=== PATIENT | male | born 1980 | race Caucasian/White ===

== ENCOUNTER 2020-02-13 19:11 | Emergency (ER) | payer OTHER, SELFPAY ==
[2020-02-13 19:28] VITALS: BP 129/71; PULSE 75; RESP 16; TEMP 37.1; O2SAT 98
--- NOTE | 2020-02-13 19:48 | XR_ITS ---
EXAMINATION: XR ABDOMEN KUB CLINICAL INDICATION: Constipation. COMPARISON: None TECHNIQUE: AP views of the abdomen. FINDINGS: Nonobstructive bowel gas pattern. Mild gas throughout the colon. No abnormal soft tissue calcification. IVC filter. Phleboliths within the right pelvis. No acute osseous abnormality. XR/XR KUB IMPRESSION: Nonobstructive bowel gas pattern. Mild gas throughout the colon.
--- NOTE | 2020-02-13 19:49 | ED.ABDPAIN ---
HPI - Abdominal Pain General Chief Complaint: Abdominal Pain Stated Complaint: ABD PAIN Time Seen by Provider: 02/13/20 19:38 Source: patient Mode of arrival: ambulatory History of Present Illness HPI narrative: 39-year-old male with a past medical history of back pain presenting to ED complaining of chronic back pain x months, now with abdominal discomfort/bloating and constipation without BM x 10 days. Reports flatness has decreased. Admits to associated nausea /vomiting. Denies fever, chills, dysuria/hematuria, urinary retention or incontinence Reports back pain is unchanged, has been to multiple ED's with similar complaints, including our ED and had x-rays that were negative MD elicited complaint: abdominal pain Related Data Previous Rx's Medication Instructions Recorded acetaminophen [Tylenol Extra 500 mg PO Q6H PRN #20 tab 02/13/20 Strength] cyclobenzaprine 5 mg PO Q8H PRN 5 Days #14 tab 02/13/20 lidocaine [Lidoderm] 1 patch TOPICAL DAILY PRN #30 ea 02/13/20 MDD remove after 12 hours mineral oil [Fleet Mineral Oil] 118 ml MO DAILY PRN #135 ml 02/13/20 naproxen 500 mg PO BID PRN 10 Days #20 tab 02/13/20 Allergies Allergy/AdvReac Type Severity Reaction Status Date / Time No Known Allergies Allergy Verified 02/13/20 19:32 Review of Systems Review of Systems Constitutional: No Weight loss, No Fever Cardiovascular: No Chest Pain, No SOB, No Dyspnea Respiratory: No Cough, No Dyspnea Gastrointestinal: + Nausea, + Vomiting, No Diarrhea, + Constipation, + Abdominal pain, Genitourinary: No irregular bleeding, No Dysuria, No Hematuria, No Urinary Incontinence /retention Musculoskeletal: + chronic back pain, No Myalgias, No Joint Swelling Skin: No Skin Lesions, No rash Neuro: No Weakness, + chronic intermittent Numbness assoc with back pain, No Paresthesias Yes all other systems are reviewed and are negative Denies Sensory deficit (Neuro) Physical Exam Vital Signs: Vital Signs: Vital Signs Temp Pulse Resp BP Pulse Ox 02/13/20 20:16 97.7 F 70 18 101/72 98 02/13/20 19:28 98.7 F 75 16 129/71 98 Body Mass Index 0.2 Const: General: cooperative and healthy appearing Orientation/consciousness: patient oriented x3 Limitations: no limitations HENMT: Head: Yes normal to inspection Ears: hearing grossly normal bilaterally General nose exam: Normal external nose present Face and sinus: Yes normal facial exam Eyes: General: appearance normal, both eyes and all related structures EOM: EOMs intact bilaterally Neck: Neck: Yes normal visual inspection Resp: Effort & Inspection: normal respiratory effort GI: Inspection: Yes normal to inspection Palpation (GI): Soft to palpation, Tenderness to palpation present (GI) ( diffusely), no guarding and not rigid Back/Spine/Pelvis: Other: no midline spinous tenderness throughout Skin: Rashes: no rashes Wounds: no wounds Neuro: Other: no saddle anesthesia General: patient oriented x3 and no focal motor deficits Gait exam (Neuro): Normal gait present Motor exam (neuro): 5/5 motor strength present throughout Sensory Exam: No Sensory deficit (Neuro) Extrem: General: Yes normal to inspection Course Course Course Narrative: - labs unremarkable, KUB showing nonobstructive bowel gas pattern. Mild gas throughout the colon > patient given GoLYTELY in the ED. Will DC with GoLYTELY. Instructions discussed. MDM - Abdominal Pain MDM Narrative Medical decision making narrative: 39-year-old male with a past medical history of back pain presenting to ED complaining of chronic back pain x months, now with abdominal discomfort/bloating and constipation without BM x 10 days. On exam VSS, NAD/ well-appearing, abdomen soft diffusely tender. No midline spinous tenderness throughout or red flag symptoms. Concern for SBO/constipation. Plan: KUB Lab Data Result diagrams: 02/13/20 20:29 02/13/20 20:29 Labs: Lab Results 02/13/20 02/13/20 Range/Units 20:29 20:29 WBC 5.4 (4.8-10.8) X10*3/uL RBC 5.02 (4.60-5.80) X10*6/uL Hgb 12.2 L (14.0-18.0) g/dl Hct 38.5 L (42-52) % MCV 76.7 L (80-98) fL MCH 24.3 L (27.0-33.0) pg MCHC 31.7 (31.0-36.0) g/dl RDW 13.8 (11.0-16.0) % Plt Count 229 (160-400) X10*3/uL MPV 11.4 (9.4-12.4) fL Immature Gran % (Auto) 0.2 (0.0-0.4) % Neut % (Auto) 64.6 (45-73) % Lymph % (Auto) 26.7 (20-40) % [place] % (Auto) 7.9 (2-11) % Eos % (Auto) 0.4 (0-4) % Baso % (Auto) 0.2 (0-2) % Lymph # (Auto) 1.5 (1.2-4.9) X10*3/uL [place] # (Auto) 0.4 (0.1-1.2) X10*3/uL Eos # (Auto) 0.0 (0.0-0.4) X10*3/uL Baso # (Auto) 0.0 (0.0-0.2) X10*3/uL Abs Immat Gran (auto) 0.01 (0.00-0.03) X10*3/uL Absolute Neuts (auto) 3.5 (2.0-8.3) X10*3/uL Absolute Nucleated RBC 0.000 (0.0-0.012) X10*3/uL Nucleated RBC % (auto) 0.0 (0.0-0.2) /100WBC Sodium 138 (135-145) mmol/L Potassium 4.5 (3.3-5.1) mmol/l Chloride 100 (96-108) mmol/L Carbon Dioxide 29 (22-29) mmol/L Anion Gap 14 (12-20) BUN 10 (9-16) mg/dL Creatinine 0.86 (0.5-1.4) mg/dL Estim Creat Clear Calc 160.6 Estimated GFR > 60 Random Glucose 114 (60-115) mg/dL Calcium 8.6 (8.4-10.2) mg/dL Magnesium 2.4 (1.6-2.6) mg/dL Total Bilirubin 0.4 (0.0-1.0) mg/dL Direct Bilirubin < 0.2 (0.0-0.5) mg/dL AST 19 (5-37) U/L ALT 17 (0-40) U/L Alkaline Phosphatase 58 (39-117) U/L Total Protein 7.4 (6.5-8.0) g/dL Albumin 4.2 (3.5-5.0) g/dL Lipase 13 (8-78) U/L Discharge Plan Discharge Clinical Impression: Constipation, Chronic back pain Patient Disposition: Home, Self-Care Instructions: Constipation (ED) Additional Instructions: Your x-ray showed a lot of stool in her bowel Take GoLYTELY as instructed If you do not have a bowel movement in 2 days return to the ED immediately Additionally you sleepy enema If your pain persists or worsens, he developed persistent nausea/vomiting,numbness/tingling, weakness, or fever, or are not passing gas return to the ED Your pain is likely musculoskeletal Flexeril is a muscle relaxer, take at night as it makes you drowsy, do not drive, drink alcohol, or operate machinery while taking it Naproxen as an anti-inflammatory / pain medication, take with food Lidoderm patches are numbing patches, apply to painful area In addition take Tylenol at home If symptoms persist or worsen, pain becomes unbearable, you developed urinary retention or incontinence, or weakness return to the ED Prescriptions: New mineral oil [Fleet Mineral Oil] Enema 118 ml MO DAILY PRN (Reason: constipation) Qty: 135 RF: 0 acetaminophen [Tylenol Extra Strength] 500 mg tablet 500 mg PO Q6H PRN (Reason: pain or fever) Qty: 20 RF: 0 lidocaine [Lidoderm] 5 % adhesive patch,medicated 1 patch topical DAILY MDD remove after 12 hours PRN (Reason: pain) Qty: 30 RF: 0 naproxen 500 mg tablet 500 mg PO BID PRN (Reason: pain) 10 Days Qty: 20 RF: 0 cyclobenzaprine 5 mg tablet 5 mg PO Q8H PRN (Reason: pain (scale score 7-10)) 5 Days Qty: 14 RF: 0 Referrals: Bryce Ramon MD [Physician] - 5 days Andres Dominique MD [Physician] - 1 week (as needed) Alirio Lambert MD [Physician] - 2 days [facility] Past Medical History Attestation statement: The following information was validated with the patient. Medical History (Updated 02/13/20 @ 22:43 by DENNY Billingsley) Back pain Social History Social History Alcohol intake: never Smoking Status: Never smoker Use of substances other than those prescribed or required for medical reasons: No Advance Directives: No
[2020-02-13 20:16] VITALS: BP 101/72; PULSE 70; RESP 18; TEMP 36.5; O2SAT 98
[2020-02-13] MEDS: 0.9 % Sodium Chloride 1,000 ML 999 ML IVCONT (20:29)
[2020-02-13 21:10] LABS: MANUAL DIFF FLAG NO
[2020-02-13] MEDS: PEG 3350/Na Sulf,Bicarb,Cl/KCL 4,000 ML SOLN.RECON 240 ML PO (21:10)
[2020-02-13 21:12] LABS: Basophils Percent Auto 0.2 % (0-2); Eosinophils Percent Auto 0.4 % (0-4); Hematocrit 38.5 % (42-52); Hemoglobin 12.2 g/dl (14.0-18.0); Imm Gran Abs Auto 0.01 X10*3/uL (0.00-0.03); Imm Gran Pct Auto 0.2 % (0.0-0.4); Lymphocytes Absolute Auto 1.5 X10*3/uL (1.2-4.9); Lymphocytes Percent Auto 26.7 % (20-40); Mean Corpuscular HGB Conc 31.7 g/dl (31.0-36.0); Mean Corpuscular Hemoglobin 24.3 pg (27.0-33.0); Mean Corpuscular Volume 76.7 fL (80-98); Mean Platelet Volume 11.4 fL (9.4-12.4); Monocytes Absolute Auto 0.4 X10*3/uL (0.1-1.2); Monocytes Percent Auto 7.9 % (2-11); Neutrophils Absolute Auto 3.5 X10*3/uL (2.0-8.3); Neutrophils Percent Auto 64.6 % (45-73); Platelet Count 229 X10*3/uL (160-400); Red Blood Count 5.02 X10*6/uL (4.60-5.80); Red Cell Distribution Width 13.8 % (11.0-16.0); White Blood Count 5.4 X10*3/uL (4.8-10.8)
[2020-02-13 21:41] LABS: Alanine Aminotransferase 17 U/L (0-40); Albumin Level 4.2 g/dL (3.5-5.0); Alkaline Phosphatase 58 U/L (39-117); Anion Gap 14 (12-20); Aspartate Amino Transferase 19 U/L (5-37); Bilirubin Direct < 0.2 mg/dL (0.0-0.5); Bilirubin Total 0.4 mg/dL (0.0-1.0); Blood Urea Nitrogen 10 mg/dL (9-16); Calcium 8.6 mg/dL (8.4-10.2); Carbon Dioxide 29 mmol/L (22-29); Chloride 100 mmol/L (96-108); Creatinine Clr Calc Pharmacy 160.6; Estimated Glomerular Filt Rate > 60; Glucose Random 114 mg/dL (60-115); Lipase 13 U/L (8-78); Magnesium 2.4 mg/dL (1.6-2.6); Potassium 4.5 mmol/l (3.3-5.1); Sodium 138 mmol/L (135-145); Total Protein 7.4 g/dL (6.5-8.0)
[2020-02-13 22:40] VITALS: BP 120/76; PULSE 63; RESP 18; TEMP 36.7; O2SAT 98
[2020-02-13] MEDS: Cyclobenzaprine HCl 5 MG TABLET PO (22:57)
[2020-02-13] MEDS: Lidocaine 4 % Patch ADH..PATCH 1 PATCH TRANSDERMA (22:57)
[2020-02-13] MEDS: Ketorolac Tromethamine 15 MG/ML VIAL IVPUSH (22:57)
== END 2020-02-13 23:00 | disposition home or self-care (01) ==
PROVIDERS: Physician Assistant; Emergency Provider Internal Medicine
DX: M54.5 Low back pain (principal); Z79.899 Other long term (current) drug therapy; K59.00 Constipation, unspecified
CPT/HCPCS: 36415; 74018; 80048; 80076; 83690; 83735; 85025; 96361; 96374; 99284; J1885

== ENCOUNTER 2020-03-17 19:22 | Emergency (ER) | payer OTHER, SELFPAY ==
[2020-03-17 19:34] VITALS: BP 129/68; PULSE 80; RESP 18; TEMP 36.5; O2SAT 97; BMI 27.2
--- NOTE | 2020-03-17 21:39 | ED.GENADULT ---
HPI - General Adult General Chief complaint: General Medical Stated complaint: Abdominal Pain Time Seen by Provider: 03/17/20 21:39 Source: patient Mode of arrival: ambulatory Limitations: no limitations History of Present Illness HPI narrative: This is a 39-year-old male who presents stating that he has been healthy his entire life until approximately 2 months ago when he began experiencing mid back discomfort which then later on developed into chest discomfort that he is having some difficulty in describing but states that it is almost like spasms that happen intermittently and has also affected his abdomen but he does state that the constipation he has it experiencing he feels is secondary to the medications that he has been prescribed ( ibuprofen, Zofran, methocarbamol, cyclobenzaprine ). He states that none of these medications has helped and instead has actually worsened his condition he feels. He denies any family history of medical conditions and denies any use of tobacco, alcohol, drugs to include marijuana. Related Data Previous Rx's Medication Instructions Recorded acetaminophen [Tylenol Extra 500 mg PO Q6H PRN #20 tab 02/13/20 Strength] cyclobenzaprine 5 mg PO Q8H PRN 5 Days #14 tab 02/13/20 lidocaine [Lidoderm] 1 patch TOPICAL DAILY PRN #30 ea 02/13/20 MDD remove after 12 hours mineral oil [Fleet Mineral Oil] 118 ml NM DAILY PRN #135 ml 02/13/20 naproxen 500 mg PO BID PRN 10 Days #20 tab 02/13/20 omeprazole 40 mg PO BID 30 Days #60 cap 03/18/20 Allergies Allergy/AdvReac Type Severity Reaction Status Date / Time No Known Allergies Allergy Verified 02/13/20 19:32 Review of Systems Review of Systems: Pertinent positives and negatives as stated in HPI and 10 point review of systems is otherwise negative. [facility] Past Medical History Source: nursing notes reviewed Medical History Back pain Social History Social History Alcohol intake: never Smoking Status: Never smoker Smoked in Last 30 Days: No Use of substances other than those prescribed or required for medical reasons: No Advance Directives: No Advance Directives Information Provided: Yes Physical Exam Vital Signs: Vital Signs: Last Vital Signs Temp 98.0 F 03/18/20 00:30 Pulse 68 03/18/20 00:30 Resp 16 03/18/20 00:30 BP 120/60 03/18/20 00:30 Pulse Ox 98 03/18/20 00:30 Body Mass Index 27.2 VITAL SIGNS: Reviewed. GENERAL: Well developed, well nourished, in no acute distress. HEAD: Normocephalic/atraumatic, EYES: PERRLA, EOMI intact without pain, no nystagmus/pallor/icterus noted EARS: Ext canals without abnormality, TMs non-bulging and non-erythematous NOSE: Nares patent bilateral OROPHARYNX: no oral lesions noted, posterior pharynx clear and non-erythematous without noted tonsillar enlargement/erythema/exudates NECK: Supple, no adenopathy LUNGS: Normal breath sounds. No adventitious sounds or accessory muscle use. SpO2<97> CARDIOVASCULAR: Regular rate and rhythm without noted murmurs, no JVD or lower extremity edema. ABDOMEN: Soft, non-tender, non-distended with bowel sounds. No rigidity. No guarding. No palpable masses or hernias noted MUSCULOSKELETAL: No tenderness, deformities, or effusions noted on gross inspection. EXTREMITIES: No cyanosis, clubbing or edema. SKIN: Inspection of the skin reveals no rashes, ulcerations, jaundice, pallor, or petechiae. NEUROLOGIC: Alert and oriented x 4. Strength and sensation to light touch were grossly intact x 4. Course Course Course Narrative: This is a 39-year-old male with history and clinical presentation unclear etiology. All documentation patient has been reviewed and primarily the workup has been for constipation and chronic back pain, however as per the patient his back condition is a new condition. In addition, no imaging is noted except for a KUB. Will investigate with ESR, CRP, TSH, and repeat basic lab work and will likely proceed with a CT scan with IV contrast of abdomen and pelvis. Patient has been experiencing difficulties with obtaining a primary care provider. It is suspected this time the patient may have also developed NSAID related gastric symptoms due to the numerous prescriptions he has been provided. On review of all investigations there is a noted gradual decline in hemoglobin from 15 down to 11 however it is noted that patient is asymptomatic for this without tachycardia or reports of dizziness / lightheadedness. In addition, there is no evidence of elevation of BUN, however on CT scan patient is noted to have stranding around the antrum portion of the stomach. Also, patient has a noted small enhancing lesion on the spleen of uncertain etiology and will need to be worked up further with an ultrasound or MRI. This last finding was discussed with the patient at bedside and included in his discharge paperwork. All results and findings were discussed with patient at bedside. Reevaluation(s) Reevaluation #1: I discussed the case with Dr. Aragon who recommends patient be started on PPI, twice Daily, and call the GI office tomorrow and let them know that he was seen here in the ER and that he will be scheduled for a scope shortly thereafter. Time: 00:46 Medical Decision Making Lab Data Result diagrams: 03/17/20 22:00 03/17/20 22:00 Labs: Lab Results 03/17/20 03/17/20 03/17/20 Range/Units 22:00 22:00 22:00 WBC 6.0 (4.8-10.8) X10*3/uL RBC 4.63 (4.60-5.80) X10*6/uL Hgb 11.0 L (14.0-18.0) g/dl Hct 35.0 L (42-52) % MCV 75.6 L (80-98) fL MCH 23.8 L (27.0-33.0) pg MCHC 31.4 (31.0-36.0) g/dl RDW 15.4 (11.0-16.0) % Plt Count 261 (160-400) X10*3/uL MPV 10.3 (9.4-12.4) fL Immature Gran % (Auto) 0.2 (0.0-0.4) % Neut % (Auto) 55.2 (45-73) % Lymph % (Auto) 33.2 (20-40) % [place] % (Auto) 10.1 (2-11) % Eos % (Auto) 1.0 (0-4) % Baso % (Auto) 0.3 (0-2) % Lymph # (Auto) 2.0 (1.2-4.9) X10*3/uL [place] # (Auto) 0.6 (0.1-1.2) X10*3/uL Eos # (Auto) 0.1 (0.0-0.4) X10*3/uL Baso # (Auto) 0.0 (0.0-0.2) X10*3/uL Abs Immat Gran (auto) 0.01 (0.00-0.03) X10*3/uL Absolute Neuts (auto) 3.3 (2.0-8.3) X10*3/uL Absolute Nucleated RBC 0.000 (0.0-0.012) X10*3/uL Nucleated RBC % (auto) 0.0 (0.0-0.2) /100WBC ESR 14 (0-15) MM/HR Sodium 139 (135-145) mmol/L Potassium 4.2 (3.3-5.1) mmol/l Chloride 105 (96-108) mmol/L Carbon Dioxide 28 (22-29) mmol/L Anion Gap 10 L (12-20) BUN 12 (9-16) mg/dL Creatinine 0.90 (0.5-1.4) mg/dL Estim Creat Clear Calc 129.3 Estimated GFR > 60 Random Glucose 97 (60-115) mg/dL Calcium 8.8 (8.4-10.2) mg/dL Total Bilirubin 0.3 (0.0-1.0) mg/dL AST 20 (5-37) U/L ALT 18 (0-40) U/L Alkaline Phosphatase 52 (39-117) U/L C-Reactive Protein 0.10 (< or = 0.50) mg/dL C-React Prot High Sens Total Protein 7.0 (6.5-8.0) g/dL Albumin 4.2 (3.5-5.0) g/dL Lipase 16 (8-78) U/L TSH 0.46 (0.32-4.0) mIU/mL Urine Color Urine Appearance Urine pH (5.0-8.0) Ur Specific [place] (1.005-1.025) Urine Protein (NEG-TRACE) MG/DL Urine Glucose (UA) (NEG) MG/DL Urine Ketones (NEG) MG/DL Urine Blood (NEG) Urine Nitrite (NEG) Ur Leukocyte Esterase (NEG) 03/17/20 03/17/20 Range/Units 22:00 22:13 WBC (4.8-10.8) X10*3/uL RBC (4.60-5.80) X10*6/uL Hgb (14.0-18.0) g/dl Hct (42-52) % MCV (80-98) fL MCH (27.0-33.0) pg MCHC (31.0-36.0) g/dl RDW (11.0-16.0) % Plt Count (160-400) X10*3/uL MPV (9.4-12.4) fL Immature Gran % (Auto) (0.0-0.4) % Neut % (Auto) (45-73) % Lymph % (Auto) (20-40) % [place] % (Auto) (2-11) % Eos % (Auto) (0-4) % Baso % (Auto) (0-2) % Lymph # (Auto) (1.2-4.9) X10*3/uL [place] # (Auto) (0.1-1.2) X10*3/uL Eos # (Auto) (0.0-0.4) X10*3/uL Baso # (Auto) (0.0-0.2) X10*3/uL Abs Immat Gran (auto) (0.00-0.03) X10*3/uL Absolute Neuts (auto) (2.0-8.3) X10*3/uL Absolute Nucleated RBC (0.0-0.012) X10*3/uL Nucleated RBC % (auto) (0.0-0.2) /100WBC ESR (0-15) MM/HR Sodium (135-145) mmol/L Potassium (3.3-5.1) mmol/l Chloride (96-108) mmol/L Carbon Dioxide (22-29) mmol/L Anion Gap (12-20) BUN (9-16) mg/dL Creatinine (0.5-1.4) mg/dL Estim Creat Clear Calc Estimated GFR Random Glucose (60-115) mg/dL Calcium (8.4-10.2) mg/dL Total Bilirubin (0.0-1.0) mg/dL AST (5-37) U/L ALT (0-40) U/L Alkaline Phosphatase (39-117) U/L C-Reactive Protein (< or = 0.50) mg/dL C-React Prot High Sens Cancelled Total Protein (6.5-8.0) g/dL Albumin (3.5-5.0) g/dL Lipase (8-78) U/L TSH (0.32-4.0) mIU/mL Urine Color YELLOW Urine Appearance CLEAR Urine pH 7.0 (5.0-8.0) Ur Specific [place] 1.020 (1.005-1.025) Urine Protein NEG (NEG-TRACE) MG/DL Urine Glucose (UA) NEG (NEG) MG/DL Urine Ketones NEG (NEG) MG/DL Urine Blood NEG (NEG) Urine Nitrite NEG (NEG) Ur Leukocyte Esterase NEG (NEG) Discharge Plan Discharge Clinical Impression: Peptic ulcer disease Anemia Qualifiers: Anemia type: other cause Other causes of anemia: other cause, not classified Qualified Code(s): D64.89 - Other specified anemias Patient Disposition: Home, Self-Care Instructions: Peptic Ulcer (ED), Diet for Stomach Ulcers and Gastritis (ED), Anemia (ED) Additional Instructions: 1. DO NOT take any NSAIDs (ibuprofen, Motrin, Aleve, Advil, aspirin, Naprosyn, naproxen ) 2. On the CT scan today there was an incidental finding of a lesion on your spleen of unclear cause which will require you to follow-up as an outpatient with an ultrasound or an MRI. 3. You will need to call the [facility] office in the morning and inform them that you were seen here in the emergency department and that the ER doctor spoke with Dr. Aragon and that you should be scheduled for an appointment for further evaluation and possible endoscopy. Prescriptions: New omeprazole 40 mg capsule,delayed release(DR/EC) 40 mg PO BID 30 Days Qty: 60 RF: 0 No Action mineral oil [Fleet Mineral Oil] Enema 118 ml NM DAILY PRN (Reason: constipation) Qty: 135 RF: 0 acetaminophen [Tylenol Extra Strength] 500 mg tablet 500 mg PO Q6H PRN (Reason: pain or fever) Qty: 20 RF: 0 lidocaine [Lidoderm] 5 % adhesive patch,medicated 1 patch topical DAILY MDD remove after 12 hours PRN (Reason: pain) Qty: 30 RF: 0 naproxen 500 mg tablet 500 mg PO BID PRN (Reason: pain) 10 Days Qty: 20 RF: 0 cyclobenzaprine 5 mg tablet 5 mg PO Q8H PRN (Reason: pain (scale score 7-10)) 5 Days Qty: 14 RF: 0 Referrals: Lupillo Aragon [Physician] - 1 day ( Re-evaluation and management for suspected peptic ulcer disease with associated anemia)
--- NOTE | 2020-03-17 21:47 | CT_ITS ---
EXAMINATION: CT ABDOMEN AND PELVIS WITH CONTRAST CLINICAL INFORMATION: Dominant pain COMPARISON: None TECHNIQUE: Multidetector volumetric images were obtained from the superior aspect of the liver through the pubic symphysis following administration 85 mL of Omnipaque 350 intravenous contrast. Sagittal and coronal reformatted images were obtained on the technologist's workstation. Oral contrast: No This CT examination was performed using dose optimization techniques as appropriate, variously including the following: *Automated exposure control *Adjustment of mA and/or kV according to patient size (this includes techniques or standardized protocols for targeted exams where dose is matched to indication/reason for exam; i.e. extremities or head) *Use of iterative reconstruction technique DLP: 659 mGy-cm FINDINGS: LUNG BASES: The visualized lung bases are unremarkable. LIVER, GALLBLADDER, AND BILIARY TREE: Small subcentimeters lesion in the right lobe likely incidental. Appears contracted PANCREAS: Unremarkable. SPLEEN: Enhancing lesion posterior spleen. Uncertain etiology. 1.7 cm in measurement. ADRENAL GLANDS: Unremarkable. KIDNEYS AND URETERS: The kidneys are normal in size, shape, and attenuation. No hydronephrosis, hydroureter, or calculi seen. No perinephric stranding. BLADDER: Unremarkable. GASTROINTESTINAL TRACT: Nonobstructive bowel pattern. Mild soft tissue stranding around the antrum and first portion of the duodenum. ABDOMINAL WALL: No significant hernia is appreciated. LYMPH NODES: Normal. VASCULAR: Vena cava filter eccentric with oriented in the vena cava. Several struts appear outside the vena cava PELVIC VISCERA: Unremarkable. OSSEOUS STRUCTURES: Unremarkable. CT/CT abdomen pelvis w con IMPRESSION: Nonobstructive bowel pattern. No suspicious fluid collection There is some soft tissue stranding around the antrum and first portion of the duodenum. Inflammatory etiology would be a consideration here. Small enhancing lesion in the spleen. Uncertain etiology. Recommend ultrasound or MRI.
[2020-03-17 21:53] VITALS: BP 121/76; PULSE 87; RESP 16; O2SAT 97
[2020-03-17] MEDS: Magnesium Hydrox/Alum Hydrox 30 ML ORAL.SUSP PO (22:00)
[2020-03-17] MEDS: Lidocaine HCl Viscous 2 % 15 ML SOLUTION 10 ML MUCOUS MEM (22:00)
[2020-03-17 22:07] LABS: Basophils Percent Auto 0.3 % (0-2); Eosinophils Absolute Auto 0.1 X10*3/uL (0.0-0.4); Imm Gran Abs Auto 0.01 X10*3/uL (0.00-0.03); Imm Gran Pct Auto 0.2 % (0.0-0.4); Lymphocytes Percent Auto 33.2 % (20-40); MANUAL DIFF FLAG NO; Mean Corpuscular HGB Conc 31.4 g/dl (31.0-36.0); Mean Corpuscular Hemoglobin 23.8 pg (27.0-33.0); Mean Corpuscular Volume 75.6 fL (80-98); Mean Platelet Volume 10.3 fL (9.4-12.4); Monocytes Absolute Auto 0.6 X10*3/uL (0.1-1.2); Monocytes Percent Auto 10.1 % (2-11); Neutrophils Absolute Auto 3.3 X10*3/uL (2.0-8.3); Neutrophils Percent Auto 55.2 % (45-73); Platelet Count 261 X10*3/uL (160-400); Red Blood Count 4.63 X10*6/uL (4.60-5.80); Red Cell Distribution Width 15.4 % (11.0-16.0)
[2020-03-17 22:23] LABS: Appearance Urine CLEAR; Color Urine YELLOW; Glucose Urine UA NEG (NEG); Leukocyte Esterase Urine NEG (NEG); Nitrite Urine NEG (NEG); Urine Blood NEG (NEG); Urine Ketones NEG (NEG); Urine Protein NEG (NEG-TRACE)
[2020-03-17 22:34] LABS: Alanine Aminotransferase 18 U/L (0-40); Albumin Level 4.2 g/dL (3.5-5.0); Alkaline Phosphatase 52 U/L (39-117); Anion Gap 10 (12-20); Aspartate Amino Transferase 20 U/L (5-37); Bilirubin Total 0.3 mg/dL (0.0-1.0); Blood Urea Nitrogen 12 mg/dL (9-16); Calcium 8.8 mg/dL (8.4-10.2); Carbon Dioxide 28 mmol/L (22-29); Chloride 105 mmol/L (96-108); Creatinine Clr Calc Pharmacy 129.3; Estimated Glomerular Filt Rate > 60; Glucose Random 97 mg/dL (60-115); Lipase 16 U/L (8-78); Potassium 4.2 mmol/l (3.3-5.1); Sodium 139 mmol/L (135-145)
[2020-03-17 22:36] VITALS: BP 124/78; PULSE 70; RESP 16; O2SAT 98
[2020-03-17 22:54] LABS: TSH reflex Free T4 0.46 mIU/mL (0.32-4.0)
[2020-03-17] MEDS: iohexoL 350 MG/ML 100 ML INFUS..BTL 85 ML IV (23:42)
[2020-03-17 23:48] LABS: Erythrocyte Sedimentation Rate 14 MM/HR (0-15)
[2020-03-18 00:30] VITALS: BP 120/60; PULSE 68; RESP 16; TEMP 36.7; O2SAT 98
[2020-03-18] MEDS: Pantoprazole Sodium 40 MG/10 ML VIAL IVPUSH (00:58)
== END 2020-03-18 01:20 | disposition home or self-care (01) ==
PROVIDERS: Emergency Provider Student in an Organized Health Care Education/Training Program
DX: K27.9 Peptic ulcer, site unspecified, unspecified as acute or chronic, without hemorrhage or perforation (principal); D64.89 Other specified anemias; R93.5 Abnormal findings on diagnostic imaging of other abdominal regions, including retroperitoneum; D73.89 Other diseases of spleen
CPT/HCPCS: 36415; 74177; 80053; 81003; 83690; 84443; 85025; 85652; 86140; 96374; 99284; Q9967